=== PATIENT | male | born 1995 | race Caucasian/White ===

== ENCOUNTER 2020-05-24 16:32 | Emergency (ER) | payer BC ==
[2020-05-24 16:41] VITALS: BP 117/72
--- NOTE | 2020-05-24 17:17 | ER Document Report ---
ED Medical Screen (RME) - General Chief Complaint: Leg Pain Stated Complaint: RIGHT LEG PAIN, SWELLING Time Seen by Provider: 05/24/20 17:11 Mode of Arrival: Ambulatory Information source: Patient Notes: Patient presents with tenderness and swelling to the right medial thigh area. Patient complains of a tender lump to the medial thigh area. Patient states that he has had pain to this area for the past 8 months although over the past month this area has noticeably increased in size. I have greeted and performed a rapid initial assessment of this patient. A comprehensive ED assessment and evaluation of the patient, analysis of test results and completion of the medical decision making process will be conducted by additional ED providers. - Related Data Allergies/Adverse Reactions: No Known Allergies Allergy (Unverified 05/24/20 17:11) Home Medications: escitalopram, depakote Physical Exam - Vital signs Vitals: Temp Pulse Resp BP Pulse Ox 98.8 F 81 16 117/72 98 05/24/20 16:40 05/24/20 16:40 05/24/20 16:40 05/24/20 16:40 05/24/20 16:40 - General General appearance: Appears well, Alert In distress: None Notes: Patient with tender palpable mass to the right medial thigh, normal skin color and temperature overlying this area. Patient does have some swelling as compared to the left thigh Course - Vital Signs Vital signs: Temp Pulse Resp BP Pulse Ox 98.8 F 81 16 117/72 98 05/24/20 16:40 05/24/20 16:40 05/24/20 16:40 05/24/20 16:40 05/24/20 16:40
--- NOTE | 2020-05-24 17:55 | ER Document Report ---
ED Extremity Problem, Lower - General Chief Complaint: Thigh Pain Stated Complaint: RIGHT LEG PAIN, SWELLING Time Seen by Provider: 05/24/20 17:11 Mode of Arrival: Ambulatory Notes: CHIEF COMPLAINT: Right medial thigh swelling HPI: 24-year-old male presenting for right medial thigh swelling and discomfort. States he has had a small lump there over the last 10 years, in the last 9 months it has gotten progressively larger and more tender. No fever. Hurts when someone pushes on the area or puts close over the area. ROS: See HPI - all other systems were reviewed and are otherwise negative Constitutional: no fever Integumentary: no rash Allergy: no hives Musculoskeletal: + extremity pain or swelling Neurological: no numbness/tingling, no weakness MEDICATIONS: I agree with the patient medications as charted by the RN. ALLERGIES: I agree with the allergies as charted by the RN. PAST MEDICAL HISTORY/PAST SURGICAL HISTORY: Reviewed and agree as charted by RN. SOCIAL HISTORY: Reviewed and agree as charted by RN. FAMILY HISTORY: No significant familial comorbid conditions directly related to patient complaint EXAM: Reviewed vital signs as charted by RN. CONSTITUTIONAL: Alert and oriented and responds appropriately to questions. Well-appearing; well-nourished HEAD: Normocephalic; atraumatic EYES: PERRL; Conjunctivae clear, sclerae non-icteric ENT: normal nose; no rhinorrhea; moist mucous membranes NECK: Supple without meningismus CARD: RRR; no murmurs, no clicks, no rubs, no gallops; symmetric distal pulses RESP: Normal chest excursion without splinting or tachypnea ABD/GI: non-distended. BACK: The back appears normal EXT: Normal ROM in all joints; no cyanosis, no effusions, there is a firm slightly mobile mildly tender area to the medial mid right thigh measuring 3.5 cm x 2 cm, no induration or fluctuance. No overlying erythema SKIN: Normal color for age and race; warm; dry; good turgor; no acute lesions noted NEURO: Moves all extremities equally; Motor and sensory function intact PSYCH: The patient's mood and manner are appropriate. Grooming and personal hygiene are appropriate. MDM: 24-year-old male with what is likely a lipoma medial right thigh. Screening labs and venous Doppler ordered via triage process. If negative will discharge to follow-up with surgery for removal - Related Data Allergies/Adverse Reactions: No Known Allergies Allergy (Unverified 05/24/20 17:11) Home Medications: escitalopram, depakote Past Medical History - General Information source: Patient - Social History Smoking Status: Never Smoker Chew tobacco use (# tins/day): No Frequency of alcohol use: None Drug Abuse: None Family History: Reviewed & Not Pertinent Patient has homicidal ideation: No Psychiatric Medical History: Reports: Hx Bipolar Disorder Physical Exam - Vital signs Vitals: Temp Pulse Resp BP Pulse Ox 98.8 F 81 16 117/72 98 05/24/20 16:40 05/24/20 16:40 05/24/20 16:40 05/24/20 16:40 05/24/20 16:40 Course - Re-evaluation Re-evalutation: 05/24/20 18:16 Patient's lab work without acute abnormalities. I discussed the patient's venous Doppler with the library circulation technician, she did not see a blood clot indicates there was slightly more vascularity internally in the area that she had expected for a simple lipoma, deep-seated lipomas do tend to have more vascularity. I discussed this at length with the patient. Will refer to surgery for further management. - Vital Signs Vital signs: Temp Pulse Resp BP Pulse Ox 98.8 F 81 16 117/72 98 05/24/20 16:40 05/24/20 16:40 05/24/20 16:40 05/24/20 16:40 05/24/20 16:40 - Laboratory Result Diagrams: 05/24/20 17:22 05/24/20 17:22 Laboratory results interpreted by me: 05/24/20 17:22 Glucose 121 H Discharge - Discharge Clinical Impression: Mass of right thigh Condition: Stable Disposition: HOME, SELF-CARE Additional Instructions: Take the Voltaren for pain. Lab work was normal today. Ultrasound did not show evidence of a blood clot. Follow-up with the surgery clinic for further evaluation of the area on the inner right thigh, call for appointment. They may need further imaging which may include MRI, they may elect to biopsy the area or just remove the area entirely if they determined it to be a lipoma Prescriptions: Diclofenac Sodium [Voltaren 50 Mg Tablet.] 50 mg PO BID #20 tablet. Referrals: JACLYN RAROYO MD [ACTIVE STAFF] - Follow up as needed
[2020-05-24 17:56] LABS: ABSOLUTE EOSINOPHILS # (AUTO) 0.1 10^3/uL (0.0-0.6); ABSOLUTE MONOCYTES (AUTO) 0.5 10^3/uL (0.1-1.4); ABSOLUTE NEUT (AUTO) 2.9 10^3/uL (1.7-8.2); BASOPHILS % (AUTO) 0.9 % (0-2); HEMATOCRIT 40.7 % (37.9-51.0); LYMPHOCYTES % (AUTO) 35.8 % (13-45); MEAN CORPUSCULAR HEMOGLOBIN 30.7 pg (27.0-33.4); MEAN CORPUSCULAR HGB CONC 34.4 g/dL (32.0-36.0); MEAN CORPUSCULAR VOLUME 89 fl (80-97); MONOCYTES % (AUTO) 8.8 % (3-13); PLATELET COUNT 232 10^3/uL (150-450); RED BLOOD COUNT 4.55 10^6/uL (4.35-5.55); SEGMENTED NEUTROPHILS % (AUTO) 53.5 % (42-78); TOTAL CELLS COUNTED % (AUTO) 100 %; WHITE BLOOD COUNT 5.5 10^3/uL (4.0-10.5)
[2020-05-24 18:08] LABS: ALBUMIN 4.4 g/dL (3.5-5.0); ALKALINE PHOSPHATASE 38 U/L (38-126); ANION GAP 6 (5-19); ASPARTATE AMINO TRANSFERASE 32 U/L (17-59); BILIRUBIN,DIRECT 0.2 mg/dL (0.0-0.4); BILIRUBIN,TOTAL 0.6 mg/dL (0.2-1.3); BLOOD UREA NITROGEN 15 mg/dL (7-20); CALCIUM 9.5 mg/dL (8.4-10.2); CARBON DIOXIDE 27 mmol/L (22-30); CHLORIDE 106 mmol/L (98-107); GLUCOSE 121 mg/dL (75-110); POTASSIUM 4.1 mmol/L (3.6-5.0); TOTAL PROTEIN 7.3 g/dL (6.3-8.2)
--- NOTE | 2020-05-24 18:52 | RADIOLOGY REPORT (SQ) ---
EXAM DESCRIPTION: VENOUS UNILATERAL LOWER IMAGES COMPLETED DATE/TIME: 05/24/2020 6:21 pm REASON FOR STUDY: RLE pain, swelling COMPARISON: None. TECHNIQUE: Dynamic and static chavez scale and color images acquired of the right leg venous system. S elected spectral images acquired with additional compression and augmentation maneuvers. The contrala teral common femoral vein and saphenofemoral junction were also imaged. Images stored on PACS. LIMITATIONS: None. FINDINGS: COMMON FEMORAL: Normal phasicity, compression and augmentation. No visualized echogenic ma terial on chavez scale. No defects on color images. FEMORAL: Normal compression and augmentation. No visualized echogenic material on chavez scale. No defe cts on color images. POPLITEAL: Normal compression, augmentation. No visualized echogenic material on chavez scale. No defec ts on color images. CALF VESSELS: Normal compression, augmentation. No visualized echogenic material on chavez scale. No de fects on color images. GSV and SSV: Normal compression, augmentation. No visualized echogenic material on chavez scale. No def ects on color images. ANY DEEP VENOUS INSUFFICIENCY: Not evaluated. ANY EVIDENCE OF POPLITEAL CYST: No. OTHER: Incidental note is made of a 3.5 x 4.1 x 4.4 cm heterogeneous heterogeneously hypoechoic mass with posterior acoustic enhancement and associated hyperemia within the medial thigh, correlating to the patient's area of pain. CONTRALATERAL COMMON FEMORAL VEIN AND SAPHENOFEMORAL JUNCTION: Normal phasicity, compression and augmentation. No visualized echogenic material on chavez scale. No de fects on color images. IMPRESSION: 1. No evidence of DVT. 2. Heterogeneous hypoechoic mass seen within the medial thigh demonstrates posterior acoustic enhanc ement and hyperemia; differential considerations include soft tissue mass, abscess, hematoma. TECHNICAL DOCUMENTATION: JOB ID: [id number] 2010 [employer]- All Rights Reserved Reading location - IP/workstation name: [email or web address]
== END 2020-05-24 19:07 | disposition home or self-care (01) ==
LOC: ER 16:32
DX: R22.41 Localized swelling, mass and lump, right lower limb (principal); M79.651 Pain in right thigh; M79.604 Pain in right leg; M79.89 Other specified soft tissue disorders; Z79.899 Other long term (current) drug therapy
CPT/HCPCS: 36415; 80053; 85025; 93971; 99284

== ENCOUNTER 2020-06-10 16:12 | Emergency (ER) | payer BC ==
[2020-06-10 16:19] VITALS: BP 103/69
[2020-06-10] MEDS ORDERED: IBUPROFEN 600 MG TABLET PO ONE (16:28)
[2020-06-10] MEDS ORDERED: ACETAMINOPHEN 325 MG TABLET PO ONE (16:28)
[2020-06-10] MEDS ORDERED: DIPH/PERTUSS(ACELL)/TETANUS VAC/PF 0.5 ML SYR (>=10YO) IM ONE (16:41)
--- NOTE | 2020-06-10 16:42 | ER Document Report ---
HPI - HPI Time Seen by Provider: 06/10/20 16:24 Pain Level: 4 Context: Patient is a 24-year-old male who presents emergency department with a chief complaint of right great toe pain. Patient states that he was moving a desk and the desk fell on his great toe. This incident happened just prior to arrival. Patient is unsure as to whether or not he is up-to-date on his tetanus vaccine. Patient is currently on Lexapro and Depakote. - ROS Systems Reviewed and Negative: Yes All other systems reviewed and negative - MUSCULOSKELETAL Musculoskeletal: REPORTS: Extremity pain - DERM Skin Color: Normal Skin Problems: Laceration - Very small to right great toe Past Medical History - Social History Smoking Status: Never Smoker Frequency of alcohol use: Rare Drug Abuse: None Family History: Reviewed & Not Pertinent Psychiatric Medical History: Reports: Hx Bipolar Disorder Vertical Provider Document - CONSTITUTIONAL Agree With Documented VS: Yes Exam Limitations: No Limitations General Appearance: No Apparent Distress - HEENT HEENT: Atraumatic, Normocephalic, PERRLA - NECK Neck: Normal Inspection - RESPIRATORY Respiratory: Breath Sounds Normal, No Respiratory Distress - CARDIOVASCULAR Cardiovascular: Regular Rate, Regular Rhythm Pulses: Normal: Radial - MUSCULOSKELETAL/EXTREMETIES Musculoskeletal/Extremeties: FROM, Tender - Right great toe - NEURO Level of Consciousness: Awake, Alert, Appropriate Course - Re-evaluation Re-evalutation: 06/10/20 17:02 Patient has a nondisplaced tuft fracture of his right great toe. Will place the patient in a postop shoe, crutches, and he will follow-up with orthopedics. We will start the patient on Augmentin with close follow-up with orthopedics. - Vital Signs Vital signs: Temp Pulse Resp BP Pulse Ox 98.8 F 100 18 103/69 100 06/10/20 16:17 06/10/20 16:17 06/10/20 16:17 06/10/20 16:17 06/10/20 16:17 Procedures - Immobilization Right Great toe Pre-Proc Neuro Vasc Exam: Normal Immobilizer type: Crutches, Post-op shoe, Other - Gauze and Coban Performed by: PCT Post-Proc Neuro Vasc Exam: Normal, Unchanged from pre-exam Alignment checked and good: Yes Discharge - Discharge Clinical Impression: Fractured great toe Qualifiers: Encounter type: initial encounter Fracture type: open Phalanx: distal Fracture alignment: nondisplaced Laterality: right Qualified Code(s): S92.424B - Nondisplaced fracture of distal phalanx of right great toe, initial encounter for open fracture Condition: Stable Disposition: HOME, SELF-CARE Additional Instructions: You were seen today in the emergency department for toe pain. You have a fracture. Take your antibiotics as prescribed. Soak your foot in water for about 10 minutes twice a day. Apply triple antibiotic ointment, cover with gauze and wrap your toe with the bandage. Use your crutches. Continue to wear your postop shoe. Follow-up with orthopedics in the next 3 to 5 days. Prescriptions: Amoxicillin/Potassium Clav [Augmentin 875-125 Tablet] 1 tab PO BID #14 tab Referrals: KATHERYN JUDGE MD [ACTIVE STAFF] - Follow up in 3-5 days
--- NOTE | 2020-06-10 16:59 | RADIOLOGY REPORT (SQ) ---
EXAM DESCRIPTION: TOE RIGHT IMAGES COMPLETED DATE/TIME: 06/10/2020 4:48 pm REASON FOR STUDY: desk dropped on toe COMPARISON: None. NUMBER OF VIEWS: Three views. TECHNIQUE: AP, lateral, and oblique images acquired of the right first toe. LIMITATIONS: None. FINDINGS: MINERALIZATION: Normal. BONES: Nondisplaced great toe tuft fracture. JOINTS: No effusions. SOFT TISSUES: No soft tissue swelling. No foreign body. OTHER: No other significant finding. IMPRESSION: Nondisplaced tuft fracture of the great toe. COMMENT: SITE OF TRAUMA/COMPLAINT MARKED/STAMP COMPLETED: NO. TECHNICAL DOCUMENTATION: JOB ID: [id number] 2010 [employer]- All Rights Reserved Reading location - IP/workstation name: [email or web address]
== END 2020-06-10 17:20 | disposition home or self-care (01) ==
LOC: ER 16:12
DX: S92.424B Nondisplaced fracture of distal phalanx of right great toe, initial encounter for open fracture (principal); W22.8XXA Striking against or struck by other objects, initial encounter; Z23 Encounter for immunization
CPT/HCPCS: 90471; 90715; 99283